=== PATIENT | female | born 1950 | race Hispanic/Latino ===

== ENCOUNTER 2019-06-27 06:32 | Observation (INO) | payer MEDICARE ==
[2019-06-26 15:11] LABS: BASOPHILS # (AUTO) 0.1 (0.0-0.1); EOSINOPHILS # (AUTO) 0.1 (0.0-0.4); EOSINOPHILS % 1.2 % (0.0-6.0); HEMOGLOBIN 12.4 g/dL (12.0-16.0); LYMPHOCYTES % 34.3 % (18.0-39.1); MEAN CORPUSCULAR HEMOGLOBIN 29.5 pg (28-32); MEAN CORPUSCULAR HGB CONC 32.6 g/dL (31-35); MEAN CORPUSCULAR VOLUME 90.3 fL (81-99); MONOCYTES # (AUTO) 0.5 (0.2-0.8); NEUTROPHILS # (AUTO) 3.3 (2.1-6.9); NEUTROPHILS % 55.3 % (38.7-80.0); PLATELET COUNT 279 x10e3/uL (140-360); RED BLOOD COUNT 4.21 x10e6/uL (3.6-5.1); RED CELL DISTRIBUTION WIDTH 14.7 % (11.7-14.4)
[2019-06-26 15:30] LABS: ANION GAP 14.9 mmol/L (8-16); BLOOD UREA NITROGEN 24 mg/dL (7-26); BUN/CREATININE RATIO 32 (6-25); CALCIUM 9.8 mg/dL (8.4-10.2); CARBON DIOXIDE 23 mmol/L (22-29); CHLORIDE 102 mmol/L (98-107); CREATININE, SERUM 0.75 mg/dL (0.57-1.11); EST GLOMERULAR FILTRATION RATE > 60 ML/MIN (60-); GLUCOSE 91 mg/dL (74-118); POTASSIUM 3.9 mmol/L (3.5-5.1); SODIUM 136 mmol/L (136-145)
--- NOTE | 2019-06-26 16:21 | Diagnostic Imaging Report ---
EXAMINATION: CHEST 2 VIEWS INDICATION: Pre-operative COMPARISON: None FINDINGS: LINES/TUBES:None LUNGS:The lungs are well-inflated. No focal consolidation or pulmonary edema. PLEURA:No pleural effusion or pneumothorax. MEDIASTINUM:The cardiomediastinal silhouette appears normal in size and shape. BONES/SOFT TISSUES:No acute osseous injury. ABDOMEN:No free air under the diaphragm. IMPRESSION: No focal pneumonia or pulmonary edema. Signed by: Svitlana Izquierdo MD on 06/26/2019 4:18 PM
[~2019-06-27] VITALS: Ht 154.9 cm; Wt 66.2 kg
[~2019-06-27 06:32] MED LIST: ALENDRONATE SOD70 MG PO; HYDROCHLOROTHIA25 MG PO; IBUPROFEN400 MG PO; ROPIVACAINE 246.25 MG, EPINEPHRINE HCL 1:1000 1ML 0.5 MG, CLONIDINE HCL 0.08 MG, KETORO... INJ ONE; ULTRACET TABLE1 EACH PO
--- OUTSIDE RECORDS SUMMARY | 2019-06-27 06:44 | XMS REPORT ---
[facility] Address Unknown Phone Unavailable Care Team Providers Care Change Number Operator Name Role Phone LISA LOWERY Unavailable Unavailable Problems This patient has no known problems. Allergies, Adverse Reactions, Alerts This patient has no known allergies or adverse reactions. Medications This patient has no known medications. Results Test Description Test Time Test Comments Text Results Atomic Results Result Comments CHEST 2 VIEWS 2019-06-26 16:13:00 [facility] [address] [address] Patient Name: TOM TRUJILLO MR #: [id number] : 1950 Age/Sex: 68/F Req #: [id number] [facility] Physician: Ordered by: LISA LOWERY MD Report #: [id number] Location: OR Room/Bed: Procedure: [id number] DX/CHEST 2 VIEWS Exam Date: 06/26/19 Exam Time: 1520 REPORT STATUS: Signed EXAMINATION: CHEST 2 VIEWS INDICATION: Pre-operative COMPARISON: None FINDINGS: LINES/TUBES:None LUNGS:The lungs are well-inflated. No focal consolidation or pulmonary edema. PLEURA:No pleural effusion or pneumothorax. MEDIASTINUM:The cardiomediastinal silhouette appears normal in size and shape. BONES/SOFT TISSUES:No acute osseous injury. ABDOMEN:No free air under the diaphragm. IMPRESSION: No focal pneumonia or pulmonary edema. Signed by: Gumaro Jacob MD on 06/26/2019 4:18 PM Dictated By: GUMARO JACOB MD [id number] Transcribed By: JOCELIN on 06/26/19 1618 COPY TO: LISA LOWERY MD
[2019-06-27] MEDS ORDERED: BACITRACIN 50,000 UNIT VIAL ONE (06:45)
[2019-06-27] MEDS ORDERED: TRANEXAMIC ACID 1,000 MG/10 ML ML ONE (06:45)
[2019-06-27] MEDS ORDERED: VANCOMYCIN HCL 1,000 MG ONE (06:45)
[2019-06-27] MEDS ORDERED: SODIUM CHLORIDE 0.9% 500ML 500 ML ONE (06:58)
[2019-06-27] MEDS ORDERED: CELECOXIB 200 MG CAP ONE (07:19)
[2019-06-27] MEDS ORDERED: DEXAMETHASONE SOD PHOS 10 MG/1 ML VIAL ONE (07:19)
[2019-06-27] MEDS ORDERED: CEFAZOLIN SOD 1 GM/NS 50ML 100 ML IV ONE (07:19)
[2019-06-27] MEDS ORDERED: GABAPENTIN 300 MG CAP ONE (07:19)
[2019-06-27] MEDS ORDERED: DIPHENHYDRAMINE HCL INJ 50 MG/ML VIAL IM/IV PRN (10:15)
[2019-06-27] MEDS ORDERED: ZOLPIDEM TARTRATE 5 MG TAB PO PRN (10:15)
[2019-06-27] MEDS ORDERED: DOCUSATE SODIUM 100 MG CAP PO PRN (10:15)
[2019-06-27] MEDS ORDERED: ONDANSETRON HCL INJ 2MG/ML 2ML 2 MG/ML VIAL IV PRN (10:15)
[2019-06-27] MEDS ORDERED: PROMETHAZINE HCL (IM) 25 MG/ML VIAL INJ PRN (10:15)
[2019-06-27] MEDS ORDERED: KETOROLAC TROMETHAMINE 30 MG/ML VIAL IV PRN (10:15)
[2019-06-27] MEDS ORDERED: FENTANYL CITRATE/PF 100MCG/2 ML INJ ONE ×2 (10:47→18:34)
--- NOTE | 2019-06-27 10:47 | Diagnostic Imaging Report ---
Knee radiograph, 2 views. History: Findings: Postoperative findings of right knee arthroplasty with prosthetic components in anatomic alignment. No acute fracture. Overlying subcutaneous emphysema and surgical skin pascual are present. Small joint effusion. IMPRESSION: Status post right knee replacement in anatomic position. Signed by: Svitlana Izquierdo MD on 06/27/2019 10:43 AM
[2019-06-27] MEDS ORDERED: HYDRALAZINE HCL 20 MG/ML VIAL ONE (10:56)
--- NOTE | 2019-06-27 11:20 | Operative Report ---
DATE OF PROCEDURE: 06/27/2019 SURGEON: Rob Malik MD BOTTLE CLEANER: Facundo Bhatt PA-C. PREOPERATIVE DIAGNOSIS: Osteoarthritis right knee. POSTOPERATIVE DIAGNOSIS: Osteoarthritis right knee. PROCEDURE: Right total knee arthroplasty. INDICATIONS: The patient is a 68-year-old lady with severe valgus arthritis of both knees. She has failed conservative management and would like to proceed with a right total knee replacement. She will follow this up with a left knee replacement. The risks and benefits of the procedure have been discussed. She states she understands and wishes to proceed. PROCEDURE IN DETAIL: The patient was brought to the operating room and placed under general anesthetic. She received tranexamic acid, prophylactic antibiotics and a regional block in the holding area. Her right lower extremity was prepped and draped in a sterile manner. A preoperative time-out was performed. The extremity was exsanguinated and a proximal tourniquet was inflated to 300 mmHg. An anterior approach with a medial parapatellar arthrotomy was performed. A minimal medial dissection was performed due to the valgus deformity. The knee was brought up into flexion with the patella everted. The remnants of the cruciate ligaments were sacrificed. A Varner and Nephew posterior stabilized legion knee system was used throughout the case. Once the tibia was adequately exposed, an extramedullary cutting guide was used to resect the proximal tibia. The cut was referenced off the least affected medial compartment. The tibial base plate was a size #3. The central fin punch was impacted and attention was directed towards the distal femur. An intramedullary cutting guide was used to resect the distal femur in 6 degrees of valgus and rotation referencing off a combination of landmarks including Whitesides line, the epicondylar axis and the posterior condyles. Some degree of posterior lateral hypoplasia was taken into account. The femoral component was a size 4. The anterior and posterior cuts were made. All of the cuts were irrigated with a spray mixture of diluted polymyxin and vancomycin spray while cutting. The femoral trial was placed. The notch cut was made. Trial reductions were performed. It was evident that lateral soft tissue release was necessary. A lamina lead carpenter was placed into the joint. The lateral structures were released until the knee was balanced in both flexion and extension. A 13 mm posterior stabilized insert provided appropriate soft tissue balancing in full extension and 90 degrees of flexion. The patella was then resurfaced with a 29 mm x 9 mm patellar button. The thickness was checked before and after and was right around 20 mm. Patellar tracking was concentric. The trial implants were all removed. A 100 mL premixed pericapsular SHABBIR injection was placed into the surrounding soft tissue. The knee was further irrigated with a shower tip pulsatile lavage. The components were cemented into place using a single mix of Palacos cement preloaded with antibiotics. Care was taken to remove all extravasated cement. The wound was further irrigated until the cement cured. The arthrotomy was closed with interrupted #1 Ethibond. 500 mg of vancomycin powder was sprinkled into the joint prior to closure. The knee was put through flexion and extension to ensure a secure closure of the arthrotomy. The skin was closed with subcuticular Vicryl and pascual. A sterile Aquacel bandage was placed. The patient was extubated and transported to the recovery room in stable condition. Blood loss was minimal. All needle and sponge counts were correct. Rob Malik MD DR/SHANEKA /[id number]
--- NOTE | 2019-06-27 11:41 | NUR ---
Received patient via stretcher. AAOX 4 to time, person, place, situation. Respirations even and unlabored. O2 2L NC. Dressing to right knee wrapper with CHONG wrap clean, dry, and intact. Oriented patient to room. Instructed to use call light for assistance. Voiced understanding. Will continue to monitor.
[2019-06-27 12:00] VITALS: BP 134/66
[2019-06-27 12:10] VITALS: BP 134/66
[2019-06-27] MEDS: ACETAMINOPHEN 1000 MG/100 ML IV SCH ×2 (12:30→16:37)
[2019-06-27] MEDS: SODIUM CHLORIDE 0.9% 1000ML 1,000 ML IV SCH ×2 (12:30→22:36)
--- NOTE | 2019-06-27 14:35 | NUR ---
Visit made by the Spiritual Care Department Pastoral Visitor, Rosemary York. Pt sleeping soundly and no family present. Pastoral Visitor left a card describing availability of blacksmith apprentice and instructions on how to contact a blacksmith apprentice. ILIA SHARPE Stock [employer] Spiritual Care Department O: [phone] Pager: [phone] ([phone] number calling from)
[2019-06-27] MEDS: CEFAZOLIN SOD 1 GM/NS 50ML 50 ML IV SCH ×2 (15:22→22:21)
[2019-06-27] MEDS: ASPIRIN 325 MG TAB PO SCH (16:36)
[2019-06-27] MEDS: CELECOXIB 200 MG CAP PO SCH (16:37)
[2019-06-27 16:50] VITALS: BP 110/60
[2019-06-27] MEDS ORDERED: BUPIVACAINE HCL 0.5% INJ 30 ML VIAL INJ ONE (17:51)
[2019-06-27] MEDS ORDERED: EPINEPHRINE HCL 1:1000 1ML 1 MG/ML AMP ONE (17:51)
--- NOTE | 2019-06-27 18:00 | NUR ---
CPM machine on at 45. Will continue to monitor.
[2019-06-27] MEDS ORDERED: MIDAZOLAM HCL 2 MG/2 ML VIAL ONE (18:34)
[2019-06-27] MEDS ORDERED: SEVOFLURANE INHAL SOLN 250 ML PEN BTL ONE (19:09)
[2019-06-27] MEDS ORDERED: LIDOCAINE HCL 2% LOCAL INJ 5 ML SDV VIAL INJ ONE (19:09)
[2019-06-27] MEDS ORDERED: ACETAMINOPHEN 1000 MG/100 ML IV ONE (19:09)
[2019-06-27] MEDS ORDERED: ONDANSETRON HCL INJ 2MG/ML 2ML 2 MG/ML VIAL ONE (19:09)
[2019-06-27] MEDS ORDERED: PROPOFOL IV EMULSION 10 MG/ML 20 ML VIAL ONE (19:09)
--- NOTE | 2019-06-27 19:10 | NUR ---
Report given to oncoming nurse of patient's status. Resting in bed. No s/s of acute distress noted. Tolerating CPM machine at 45. Side rails upx2, call light within reach.
[2019-06-27 20:23] VITALS: BP 132/63
[2019-06-27] MEDS ORDERED: HYDROCODONE/APAP 5MG-325MG TAB PO PRN (23:26)
[2019-06-27] MEDS: HYDROCODONE/APAP 7.5MG-325MG 1 EA TAB PO PRN (23:39)
[2019-06-28] MEDS: ACETAMINOPHEN 1000 MG/100 ML IV SCH ×2 (00:15→06:18)
[2019-06-28 00:18] VITALS: BP 103/56
[2019-06-28 05:13] VITALS: BP 103/56
[2019-06-28 05:19] VITALS: BP 115/61
[2019-06-28] MEDS: CEFAZOLIN SOD 1 GM/NS 50ML 50 ML IV SCH (05:32)
[2019-06-28 06:16] LABS: HEMATOCRIT 31.2 % (34.2-44.1); HEMOGLOBIN 10.1 g/dL (12.0-16.0)
--- NOTE | 2019-06-28 06:55 | NUR ---
Report given to ЮЛИЯ Hays dayshift nurse at this time.
[2019-06-28] MEDS: HYDROCODONE/APAP 7.5MG-325MG 1 EA TAB PO PRN (07:22)
[2019-06-28 08:08] VITALS: BP 124/58
[2019-06-28 08:11] VITALS: BP 124/58
[2019-06-28] MEDS ORDERED: ASPIRIN81 MG PO (08:55)
[2019-06-28] MEDS ORDERED: ONDANSETRON HCL 4 MG ORAL DISINTEGRATING TAB PO PRN (09:00)
[2019-06-28] MEDS: ASPIRIN 325 MG TAB PO SCH (09:25)
[2019-06-28] MEDS: CELECOXIB 200 MG CAP PO SCH (09:25)
--- NOTE | 2019-06-28 09:36 | NUR ---
PATIENT DME AND HOME HEALTH COMPANIES PRE-ARRANGED BY DR. LOWERY'S OFFICE. PATIENT WITH HOME HEALTH AND DME CONTACT INFORMATION. PATIENT AWARE TO CALL CM IF ANY PROBLEMS OCCUR WITHIN 3 DAYS POST- DISCHARGE. HOME HEALTH EXPLAINED IN DEPTH WITH SERVICES PROVIDED. PATIENT VERBALLY UNDERSTOOD. THE FOLLOWING HOME HEALTH AND COASTAL STAFFING (P) [phone] (F) [phone] CM SPOKE TO TEO WHO CONFIRMED PATIENT TO BE SEEN TOMORROW. PATIENT TO DISCHARGE TODAY. [facility] (P) [phone] (F) [phone] [facility] CONFIRMED TO DELIVER YOUTH WALKER, CPM, AND 3 IN 1 COMMODE TODAY AT BEDSIDE PRIOR TO DISCHARGE.
[2019-06-28 09:44] VITALS: BP 124/58
--- NOTE | 2019-06-28 11:09 | NUR ---
DISCHARGE INSTRUCTIONS GIVEN. PT VERBALIZED UNDERSTANDING IV DC PRESSURE DRESSING APPLIED AND TAPED EQUIPMENT ARRIVED AND IS WITH PT PHYSICAL THERAPY APPROVED DC PT IS NOW CHANGING INTO CLOTHES TO DC HOME
--- NOTE | 2019-06-28 11:37 | NUR ---
PT OFF UNIT TO HOME
[2019-06-28] MEDS ORDERED: ACETAMINOPHEN 650 MG SUPP PR PRN (12:00)
[2019-06-28] MEDS ORDERED: ACETAMINOPHEN 1000 MG/100 ML IV PRN (12:00)
[2019-06-28] MEDS ORDERED: HYDROCODONE/APAP 7.5MG-325MG 1 EA TAB PO PRN (12:00)
[2019-06-28] MEDS ORDERED: HYDROCODONE/APAP 5MG-325MG TAB PO PRN (12:00)
== END 2019-06-28 11:22 | disposition home or self-care (01) ==
LOC: OR 06:32 → PACU V 10:16 → MED/SURG 11:41
PROVIDERS: ADMIT Specialist; ATTEND Specialist
DX: M17.0 Bilateral primary osteoarthritis of knee (principal); I10 Essential (primary) hypertension; M81.0 Age-related osteoporosis without current pathological fracture
CPT/HCPCS: 27447; 36415 ×2; 71046; 73560; 80048; 85014; 85018; 85025; 86850; 86900; 86920; 93005; 97116; 97161; 97530 ×2; C1713 ×2; G0378 ×2; J0131 ×2; J0171; J0360; J0690 ×2; J1100; J1885; J2001; J2250; J2405; J2550; J2704; J2795; J3010; J3370; J7030; J7040

== ENCOUNTER → 2020-07-26 | Day surgery (SDC) | payer MEDICARE, OTHER ==
[2020-07-23 10:17] LABS: BASOPHILS # (AUTO) 0.1 (0.0-0.1); BASOPHILS % 1.1 % (0.0-1.0); EOSINOPHILS # (AUTO) 0.1 (0.0-0.4); EOSINOPHILS % 2.4 % (0.0-6.0); HEMATOCRIT 40.8 % (34.2-44.1); HEMOGLOBIN 13.2 g/dL (12.0-16.0); LYMPHOCYTES # (AUTO) 1.1 (1.0-3.2); LYMPHOCYTES % 23.6 % (18.0-39.1); MEAN CORPUSCULAR HEMOGLOBIN 28.3 pg (28-32); MEAN CORPUSCULAR HGB CONC 32.4 g/dL (31-35); MEAN CORPUSCULAR VOLUME 87.4 fL (81-99); MONOCYTES # (AUTO) 0.5 (0.2-0.8); NEUTROPHILS # (AUTO) 2.8 (2.1-6.9); NEUTROPHILS % 61.5 % (38.7-80.0); PLATELET COUNT 256 x10e3/uL (140-360); RED BLOOD COUNT 4.67 x10e6/uL (3.6-5.1); RED CELL DISTRIBUTION WIDTH 14.3 % (11.7-14.4)
[2020-07-23 10:36] LABS: ALANINE AMINOTRANSFERASE 21 IU/L (0-55); ALBUMIN/GLOBULIN RATIO 1.2 (0.8-2.0); ALKALINE PHOSPHATASE 81 IU/L (40-150); ANION GAP 15.7 mmol/L (8-16); BLOOD UREA NITROGEN 15 mg/dL (7-26); BUN/CREATININE RATIO 18 (6-25); CALCIUM 9.3 mg/dL (8.4-10.2); CARBON DIOXIDE 24 mmol/L (22-29); CHLORIDE 104 mmol/L (98-107); CREATININE, SERUM 0.85 mg/dL (0.57-1.11); EST GLOMERULAR FILTRATION RATE > 60 ML/MIN (60-); GLUCOSE 115 mg/dL (74-118); POTASSIUM 3.7 mmol/L (3.5-5.1); SODIUM 140 mmol/L (136-145)
--- NOTE | 2020-07-23 11:22 | Diagnostic Imaging Report ---
EXAMINATION: CHEST 2 VIEWS INDICATION: Pre-operative COMPARISON: Chest radiograph 12/15/2019 FINDINGS: LINES/TUBES:None LUNGS:The lungs are well-inflated. No focal consolidation or pulmonary edema. PLEURA:No pleural effusion or pneumothorax. MEDIASTINUM:The cardiomediastinal silhouette appears normal in size and shape. BONES/SOFT TISSUES:No acute osseous injury. ABDOMEN:No free air under the diaphragm. IMPRESSION: No focal pneumonia or pulmonary edema. Signed by: Svitlana Izquierdo MD on 07/23/2020 11:19 AM
[~2020-07-26] MED LIST changes: +ACETAMINOPHEN 1000 MG/100 ML 100 ML IV ONE; +ASPIRIN81 MG PO; +BUPIVACAINE 0.25%/EPI 30ML SDV INJ ONE; +DEXAMETHASONE SOD PHOS INJ 4 MG/ML VIAL ONE; +FENTANYL CITRATE/PF 100MCG/2 ML INJ ONE; +GLYCOPYRROLATE INJ 0.2 MG/ML VIAL ONE; +KETOROLAC TROMETHAMINE 30 MG/ML VIAL ONE; +LIDOCAINE HCL 2% LOCAL INJ 5 ML SDV VIAL INJ ONE; +NEOSTIGMINE 1 MG/ML 10ML VIAL ONE; +ONDANSETRON HCL INJ 2MG/ML 2ML 2 MG/ML VIAL ONE; +PROPOFOL IV EMULSION 10 MG/ML 20 ML VIAL ONE; +ROCURONIUM BROMIDE 10 MG/ML 5ML VIAL IV ONE; -ROPIVACAINE 246.25 MG, EPINEPHRINE HCL 1:1000 1ML 0.5 MG, CLONIDINE HCL 0.08 MG, KETORO... INJ ONE; +SEVOFLURANE INHAL SOLN 250 ML PEN BTL ONE
--- NOTE | 2020-07-26 07:15 | NUR ---
SPIRITUAL CARE - Pre-Surgery Assessment: Pt in bed. Pt reported supportive attention from family and friends. Intervention: Director [employer]otive provided pastoral presence, hospitality, and sympathetic listening. Acquainted pt with availability of line welder while hospitalized. Outcome: Pt expressed appreciation for visit. No need for follow up indicated at this time. ILIA Jacome Spiritual Care Department O: [phone]
--- NOTE | 2020-07-26 10:39 | Operative Report ---
DATE OF PROCEDURE: 07/26/2020 SURGEON: Rojas Chapa MD PREOPERATIVE DIAGNOSES: Chronic cholecystitis, cholelithiasis, obesity, arthritis. POSTOPERATIVE DIAGNOSES: Chronic cholecystitis, cholelithiasis, obesity, arthritis. PROCEDURE PERFORMED: Laparoscopic cholecystectomy. SOLE LAYER: MAGO Al. ESTIMATED BLOOD LOSS: Minimal. DRAINS: None. COMPLICATIONS: None. INDICATION AND FINDINGS: The patient is a 69-year-old female, has been complaining of upper abdominal pain for several months. She had an ultrasound that revealed gallstones. There was no ductal dilatation. Liver chemistries are normal. There was no history of jaundice. INTRAOPERATIVE FINDINGS: The patient had adhesions of the omentum to the gallbladder and a large stone, the cystic duct was short, common duct was not dilated. DESCRIPTION OF PROCEDURE: With the patient lying on the operative table in the supine position after administration of general anesthesia, she was prepped and draped for laparoscopic cholecystectomy. The procedure was begun by establishing the pneumoperitoneum in the right upper quadrant midclavicular line because of previous . A pneumoperitoneum was insufflated to 15 mmHg of pressure and then 5 mm trocar placed in that location. The patient was then rotated to the left and with the head up and then we put a 10/11 umbilical port and the subxiphoid port using the 10/11 size also. Finally, the right anterior axillary line trocar was placed using 5 mm trocar. The gallbladder was then grasped, retracted cephalad. The adhesions of the omentum to the gallbladder were sharply lysed, exposing the hepatorenal ligament. The dissection was begun high in the neck of the gallbladder, continue the dissection until we identify the common duct, thus the junction was seen 360 degrees circumferentially. We at this point, transected the cystic duct between titanium clips. Then, the cystic artery was also transected between titanium clips and then the gallbladder was mobilized from the liver bed using electrocautery dissection, traction and counter traction until we detached the gallbladder, placed it in an endobag and extracted through the umbilical port. We then re-insufflated the pneumoperitoneum and inspected the operative field. There was some minor oozing coming from the gallbladder bed fossa, that was cauterized and then we irrigated until the effluent fluid was clear. After ascertaining there was no bile leak, no bleeding, no apparent bowel injury. We released the pneumoperitoneum, closed the wounds. The umbilical fascia had to be closed with 2-0 Vicryl stitches because of the defect in the gallbladder created by the extraction of the large stone. We then closed the wound using 0-Vicryl for the umbilical fascia, 3-0 Vicryl for the subcutaneous tissue in that location and 5-0 Vicryl in that port site. The remaining port sites were closed with 3-0 Vicryl for the subxiphoid port, soft tissues, and pascual for the skin of all the ports. We went ahead and infiltrated the wound sites with 0.25% Marcaine with epinephrine. Sterile dressing was applied. The patient tolerated the procedure well, was taken to recovery room in stable condition. MD JAIDEN Goncalves/SHANEKA /[id number]
[2020-07-26 11:20] VITALS: BP 127/61
== END | disposition home or self-care (01) ==
LOC: OR 05:56
PROVIDERS: ATTEND Surgery
DX: K80.10 Calculus of gallbladder with chronic cholecystitis without obstruction (principal); E66.9 Obesity, unspecified; M19.90 Unspecified osteoarthritis, unspecified site; I10 Essential (primary) hypertension; R00.1 Bradycardia, unspecified; Z01.810 Encounter for preprocedural cardiovascular examination; Z01.812 Encounter for preprocedural laboratory examination; Z01.818 Encounter for other preprocedural examination; Z11.59 Encounter for screening for other viral diseases; Z68.32 Body mass index [BMI] 32.0-32.9, adult
CPT/HCPCS: 36415; 47562; 71046; 80053; 85025; 88304; 93005; C1766; J0131; J1100; J1885; J2001; J2405; J2704; J2710; J3010; U0002